=== PATIENT | male | born 1975 | race Caucasian/White ===

== ENCOUNTER 2023-08-19 06:23 | Day surgery (SDC) | payer OTHER ==
[~2023-08-19] VITALS: Ht 180.3 cm; Wt 109.0 kg
[~2023-08-19 06:23] MED LIST: FISH OIL 1,0001 EAC6 PO; FLOMAX0.4 MG PO; MIDAZOLAM HCL 5 MG/5 ML VIAL IV PRN; MULTI VITAMIN1 EACH PO; OMEPRAZOLE20 MG PO; VENTOLIN HFA18 GM INH; WELLBUTRIN SR150 MG PO; fentaNYL citrate 100 MCG/2 ML VIAL IV PRN
[2023-08-19] MEDS ORDERED: fentaNYL citrate 100 MCG/2 ML VIAL ONE (06:36)
[2023-08-19] MEDS ORDERED: MIDAZOLAM HCL 5 MG/5 ML VIAL ONE (06:36)
[2023-08-19 06:37] VITALS: BP 116/76
[2023-08-19] MEDS ORDERED: QVAR REDIHALE10.6 GM (06:40)
[2023-08-19] MEDS ORDERED: LIDOCAINE HCL 4% 50 ML BTL TOP SCH (07:00)
[2023-08-19] MEDS ORDERED: LACTATED RINGER'S 1,000 ML IV SCH (07:00)
[2023-08-19] MEDS ORDERED: LIDOCAINE HCL 1% 5 ML SDV INJ ONE (07:00)
[2023-08-19] MEDS ORDERED: IBLOOD GLUCOSE TEST STRIP 1 EA TEST VI PRN (07:00)
--- NOTE | 2023-08-19 08:52 | NUR ---
08/19/23 0852 Dakota White 0833-PT ARRIVED TO PACU AWAKE AND ANSWERING QUESTIONS APPROPRIATELY. PT ON 3L/NC WITH SATS GREATER THAN 95%. RR EVEN AND UNLABORED. ABD SOFT, NT TO PALPATION. PT PROVIDED EDUCATION OF PASSING GAS TO HELP ALLEVIATE ANY BLOATING DISCOMFORT R/T PROCEDURES. PT VERBALIZED UNDERSTANDING. PT DENIES PAIN AND NAUSEA WHEN ASKED. 0840-DR. DWYER AT BEDSIDE TO DISCUSS PROCEDURES WITH PT. 0843- SATS STABLE ON RA AT 91% OR GREATER. PT DOZING ON AND OFF. HOB ELEVATED APPROX 45 DEGREES. PT DOES HAVE NOTABLE SNORING WHILE SLEEPING.
[2023-08-19 10:07] VITALS: BP 105/73
--- NOTE | 2023-08-20 12:49 | OR ---
[facility] [address], [place] [address] Signed DATE OF OPERATION: 08/19/2023 SURGEON: Giovanni Dwyer MD PREOPERATIVE DIAGNOSES: 1. Colon screening. 2. Persistent gastroesophageal reflux symptoms. POSTOPERATIVE DIAGNOSES: 1. Relatively normal upper endoscopy, mild distal esophagitis. 2. Diverticular changes sigmoid colon. PROCEDURES: 1. Esophagogastroduodenoscopy with biopsy. 2. Total colonoscopy to cecum. ANESTHESIA: Intravenous sedation; fentanyl 200 mcg and Versed 8 mg total. INDICATION: This 47-year-old white man is a patient of ROSE MARY Acosta and is referred for colonoscopy and possible upper endoscopy. As regard to the colon, he has never had colonoscopy in the past. He has no symptoms of bleeding, diarrhea, or constipation and no family history of colon cancer. Additionally, he does have significant "constant heartburn." He has no associated dysphagia, but does have significant reflux type symptoms. He has no family history of esophageal cancer. He is taking PPI medication, omeprazole for symptom control, which is not fully satisfactory currently. He is admitted at this time to undergo screening colonoscopy as well as upper endoscopy as described. The risk of bleeding, infection, and perforation have been reviewed with him. He understands and wished to proceed. FINDINGS: Upper endoscopy did not show severe esophagitis, possibly minimal inflammation. There was no evidence of Neville's epithelium, varices, or other issue. The flap valve was marginal, though intact largely. The stomach and duodenum are normal. CLOtest was negative 15 minutes post procedure. On colonoscopy, the prep was quite good. Complete colonoscopy was undertaken to the cecum. There were only a few scattered diverticula of the sigmoid, but absolutely no sign of polyps or cancer or other abnormality otherwise. Electronically Signed By: GIOVANNI DWYER MD 08/20/23 1249 PATIENT NAME: ROSE CAMPO OPERATIVE REPORT DATE OF : 79 REPORT #: [id number] PHYSICIAN: GIOVANNI DWYER MD PCP: BRANDI SAMSON PA-C REPORT IS CONFIDENTIAL AND NOT TO BE RELEASED WITHOUT AUTHORIZATION [facility] [address] [place], [place] [address] Signed PROCEDURE IN DETAIL: The patient was brought to the endoscopy suite and given topical lidocaine hypopharyngeal anesthesia and placed in the lateral decubitus position. He was given intravenous sedation to the point of slurred speech and nystagmus. A bite block was placed. An Olympus video upper endoscope was passed in the hypopharynx. The vocal cords were normal. Scope was advanced to the esophagus without problem. Throughout its length, the esophagus appeared normal. Scope was passed to the stomach, which was insufflated with air. Rugal folds were normal. There was no sign of bile within the stomach. The antrum was normal as was the pylorus. The scope was passed through into the duodenum, which was normal. Biopsies were taken of the duodenum to assess for celiac disease. The scope was withdrawn and biopsies taken of the antrum for both ANA and pathologic testing. Retroflexed view was undertaken showing a marginal flap valve. No sign of large hiatal hernia, however. The scope was withdrawn to the distal esophagus where biopsies were obtained confirming no evidence of Neville's epithelium, varices, stricture, or significantly inflammation at this time. Midesophageal biopsies were undertaken as well. The scope was withdrawn and removed. The patient was taken recovery room in good condition. CONCLUDING DIAGNOSES: 1. Clinical reflux symptoms without severe esophagitis and certainly no Neville's epithelium, marginal flap valve. 2. Normal colon except for a few diverticula. PLAN: Recommend repeat colonoscopy in 10 years. We will see him back in the office regarding further consideration of his reflux type symptoms. Recommend continue PPI medication at this time. MD KANCHAN Marrufo/HUE /[id number] cc: ROSE MARY Acosta Electronically Signed By: GIOVANNI DWYER MD 08/20/23 1249 PATIENT NAME: ROSE CAMPO OPERATIVE REPORT DATE OF : 79 REPORT #: [id number] PHYSICIAN: GIOVANNI DWYER MD PCP: BRANDI SAMSON PA-C REPORT IS CONFIDENTIAL AND NOT TO BE RELEASED WITHOUT AUTHORIZATION [address] [address] Signed Copies: ~ Electronically Signed By: GIOVANNI DWYER MD 08/20/23 1249 PATIENT NAME: ROSE CAMPO OPERATIVE REPORT DATE OF : 79 REPORT #: [id number] PHYSICIAN: GIOVANNI DWYER MD PCP: BRANDI SAMSON PA-C REPORT IS CONFIDENTIAL AND NOT TO BE RELEASED WITHOUT AUTHORIZATION
--- NOTE | 2023-08-23 14:02 | PATH ---
[facility] [address] [place], [place] [address] Signed SPECIMEN(S): A DUODENAL BIOPSY SPECIMEN(S): B ANTRUM/PY BIOPSY SPECIMEN(S): C LOWER ESOPHAGEAL BIOPSY SPECIMEN(S): D MIDDLE ESOPHAGEAL BIOPSY SPECIMEN SOURCE: A. DUODENAL BIOPSY B. ANTRUM/PY BIOPSY C. LOWER ESOPHAGEAL BIOPSY D. MIDDLE ESOPHAGEAL BIOPSY CLINICAL HISTORY: Heartburn and reflux, initial screening, no family history of colon cancer, diverticulosis FINAL PATHOLOGIC DIAGNOSIS: A. Duodenum, biopsies: - Unremarkable duodenal mucosa, negative for active inflammation or significant villous blood. B. Antrum, biopsies: - Benign gastric mucosa with vascular congestion, negative for active inflammation. - No H. pylori bacteria are detected by HE stain. C. Lower esophagus, biopsies: - Benign squamous esophageal mucosa with vascular congestion, negative for Neville's metaplasia. D. Middle esophagus, biopsies: - Benign squamous esophageal mucosa with vascular congestion, negative for increased eosinophils. AMB MICROSCOPIC EXAMINATION: Histologic sections of all submitted blocks are examined by light microscopy. These findings, together with the gross examination, support the pathologic diagnosis. GROSS DESCRIPTION: A. The specimen, labeled and designated "Ramiro duodenal biopsy," is received in formalin and consists of two hills soft tissue fragments, ranging from 0.3-0.4 cm. Entirely submitted in (A1). B. The specimen, labeled and designated "Ramiro, antrum/pylorus biopsy," is PATIENT NAME: ROSE CAMPO PATHOLOGY DATE OF : 79 REPORT #: [id number] PHYSICIAN: JOYCE CRANDALL PCP: BRANDI SAMSON PA-C REPORT IS CONFIDENTIAL AND NOT TO BE RELEASED WITHOUT AUTHORIZATION [facility] [address] [facility] [place] [place] [address] Signed received in formalin and consists of two hills soft tissue fragments, ranging from 0.3-0.4 cm. Entirely submitted in (B1). C. The specimen, labeled and designated "[place]hof, lower esophageal biopsy," is received in formalin and consists of two hills soft tissue fragments, ranging from 0.3-0.9 cm. Entirely submitted in (C1). D. The specimen, labeled and designated "[place]hof, middle esophageal biopsy," is received in formalin and consists of two hills soft tissue fragments, ranging from 0.2-0.5 cm. Entirely submitted in (D1). VB (under the direct supervision of a pathologist) The Gross Description was prepared using a voice recognition system. The report was reviewed for accuracy; however, sound-alike word errors, addition and/or deletions may occur. If there is any question about this report, please contact Client Services. ADDITIONAL NOTES: Immunohistochemical and/or in situ hybridization studies if performed in this case included appropriate positive controls that reacted as expected. This test was developed and its performance characteristics determined by [facility]. It has not been cleared or approved by the U.S. Food and Drug Administration. The FDA has determined that such clearance or approval is not necessary. This test is used for clinical purposes. It should not be regarded as investigational or for research. [facility] is certified under the Clinical Laboratory Improvement Amendments of 1988 (CLIA) as qualified to perform high complexity clinical laboratory testing. PERFORMING LABORATORY: Technical component was performed by [facility], [address] [place] [id number] (CLIA# [id number]). Professional interpretation was performed by [facility] [address] [facility] [id number] Diagnostician: Niesha Dye MD Pathologist Electronically Signed 08/23/2023 Copies: PATIENT NAME: ROSE CAMPO PATHOLOGY DATE OF : 79 REPORT #: [id number] PHYSICIAN: JOYCE CRANDALL PCP: BRANDI SAMSON PA-C REPORT IS CONFIDENTIAL AND NOT TO BE RELEASED WITHOUT AUTHORIZATION [address] [address] Signed ~ PATIENT NAME: ROSE CAMPO PATHOLOGY DATE OF : 79 REPORT #: [id number] PHYSICIAN: JOYCE PATHOLOGY PCP: BRANDI SAMSON PA-C REPORT IS CONFIDENTIAL AND NOT TO BE RELEASED WITHOUT AUTHORIZATION
== END 2023-08-19 09:55 | disposition home or self-care (01) ==
LOC: OPS 06:23 → DS 06:23 → OPS 07:30 → DSVR 08:29 → OPS 09:55
PROVIDERS: ATTEND Surgery
PROC: 0DJD8ZZ Inspection of Lower Intestinal Tract, Via Natural or Artificial Opening Endoscopic (ICD-10-PCS; 2023-08-19)
PROC: 0DB98ZX Excision of Duodenum, Via Natural or Artificial Opening Endoscopic, Diagnostic (ICD-10-PCS; principal; 2023-08-19 07:30)
PROC: 0DB58ZX Excision of Esophagus, Via Natural or Artificial Opening Endoscopic, Diagnostic (ICD-10-PCS; 2023-08-19 07:30)
DX: Z12.11 Encounter for screening for malignant neoplasm of colon (principal); K21.00 Gastro-esophageal reflux disease with esophagitis, without bleeding; K57.30 Diverticulosis of large intestine without perforation or abscess without bleeding; J68.3 Other acute and subacute respiratory conditions due to chemicals, gases, fumes and vapors; R35.0 Frequency of micturition; Z79.899 Other long term (current) drug therapy
CPT/HCPCS: 99153; G0500; J2250; J3010; J7121